=== PATIENT | female | born 1995 | race Caucasian/White ===

== ENCOUNTER 2016-07-10 16:56 | Emergency (ER) | payer OTHER ==
[~2016-07-10] VITALS: Ht 162.6 cm; Wt 79.9 kg
[~2016-07-10 16:56] MED LIST: ASCO500T3 PO; [UNRECOGNIZED DRUG - CODE] PO
[2016-07-10 17:02] VITALS: TEMP 37; Ht 162.6 cm; Wt 79.9 kg
[2016-07-10] MEDS ORDERED: BCPILLS PO (17:20)
--- NOTE | 2016-07-10 17:34 | EMERGENCY ROOM VISIT NOTE ---
ED Visit Note First contact with patient: 17:09 CHIEF COMPLAINT: Head injury HISTORY OF PRESENT ILLNESS: This 20-year-old female patient presented to the emergency department ambulatory after receiving a head injury today when she was playing kickball and another player accidentally ran into her and she believes they kneed her in the back of the head. She does not believe she struck her head on the ground but does not remember the incident.. There was possibly a brief loss of consciousness but no vomiting. No difficulty with speech. The headache has been moderate. The patient complains of no neck pain. No loss of apetite or unusual behavior since the injury. The patient has taken nothing for the pain. The patient rates the pain as 6/10 and sharp. She reports light sensitivity. She reports nausea. The patient denies bowel or bladder dysfunction. The patient denies abdominal pain. REVIEW OF SYSTEMS: A 6 system review of systems was completed with positives and pertinent negatives listed in the HPI. ALLERGIES: No known drug allergies MEDICATIONS: control pills PMH: Patient denies SOCIAL HISTORY: The patient is a [employer] student PHYSICAL EXAM: Vital Signs: Reviewed Nurse's notes, vital signs stable. GENERAL : This is a 20-year-old female, in no acute distress, well-developed, well- nourished. NEURO: The patient is alert, oriented to person place and time, and coherent. Normal mini mental status exam. HEAD: Normocephalic and atraumatic. EYES: Pupils are equal round and reactive to light and accommodation. EOMs are full and optic discs and fundi are normal. There is no swelling or discoloration of the tissue surrounding the eyes. EARS: External auditory canals clear without blood. NOSE: Patent without tenderness. No septal hematoma. FACE: No facial tenderness. NECK: Supple. There is no cervical spine tenderness. The patient does not have tenderness with movement of the neck. ED COURSE: I examined the patient. The patient presents with symptoms suggestive of concussion. CT scan was obtained to evaluate for possible intracranial bleeding given the reported loss of consciousness. There is no evidence for intracranial bleeding or skull fracture. She is encouraged to follow-up with the concussion clinic. She should return with worsening symptoms. The patient was discharged home in good condition ambulatory. [~ rep ct add3]] HEAD CT NONCONTRAST CT DOSE: 638.56 mGycm HISTORY: fall, head injury TECHNIQUE: Multiaxial CT images of the head were performed without the use of intravenous contrast. Automated exposure control was utilized for this study. Comparison: None. Findings: The paranasal sinuses and mastoid air cells are clear. The calvarium and skull base are intact. The ventricles and sulci are within normal limits. There is no mass, hematoma, midline shift, or acute infarct. Impression: No acute intracranial abnormality. GCS 15 Problem List Medical Problems: (1) Asthma Status: Chronic (2) Pneumonia Status: Resolved Current/Historical Medications Scheduled Ascorbic Acid (Vitamin C), 500 MG PO DAILY Control Pills ( Control Pills), 1 TAB PO DAILY Allergies Coded Allergies: Avocado (Verified Allergy, Intermediate, itching throat, 04/18/15) Banana (Verified Allergy, Intermediate, itching throat, nausea, 04/18/15) Brizuela (Verified Allergy, Intermediate, itching throat, 04/18/15) Vital Signs Date Time Temp Pulse Resp B/P Pulse Ox O2 Delivery O2 Flow Rate FiO2 07/10/16 18:54 84 18 119/87 98 07/10/16 17:02 37.0 83 18 121/86 98 Room Air Departure Information Impression Primary Impression: Concussion Additional Impression: Closed head injury Dispostion Home / Self-Care Condition GOOD Referrals [facility] (PCP) Forms HOME CARE DOCUMENTATION FORM, IMPORTANT VISIT INFORMATION, School Instructions Patient Instructions Concussion, [facility] Additional Instructions Tylenol or ibuprofen according to package instructions for pain Contact the concussion clinic at [facility] sports medicine ([phone]) to schedule a follow-up appointment for further evaluation and management. Their office is located at [address] [place] [address]. [address] No gym or athletics for one week after symptoms resolve
--- NOTE | 2016-07-10 18:31 | DIAGNOSTIC IMAGING REPORT ---
HEAD CT NONCONTRAST CT DOSE: 638.56 mGycm HISTORY: fall, head injury TECHNIQUE: Multiaxial CT images of the head were performed without the use of intravenous contrast. Automated exposure control was utilized for this study. Comparison: None. Findings: The paranasal sinuses and mastoid air cells are clear. The calvarium and skull base are intact. The ventricles and sulci are within normal limits. There is no mass, hematoma, midline shift, or acute infarct. Impression: No acute intracranial abnormality. Electronically signed by: Prince Adams M.D. 07/10/2016 6:29 PM Dictated Date/Time: 07/10/2016 6:25 PM
[2016-07-10 18:54] VITALS: BP 119/87; PULSE 84; O2SAT 98
== END 2016-07-10 18:56 | disposition home or self-care (01) ==
LOC: C.EDB 16:57 → C.EDD 18:56
DX: S06.0X9A Concussion with loss of consciousness of unspecified duration, initial encounter (principal); W50.0XXA Accidental hit or strike by another person, initial encounter; Y93.6A Activity, physical games generally associated with school recess, summer camp and children